=== PATIENT | male | born 1985 | race Caucasian/White ===

== ENCOUNTER → 2024-09-12 | Day surgery (SDC) | payer OTHER ==
[~2024-09-12] VITALS: Ht 193 cm; Wt 75.9 kg
[~2024-09-12] MED LIST: ACETAMINOPHEN 1000 MG/ISO-OSM 100 ML IV ONE; AMPICILLIN SODIUM 2 GM/NS 100 ML IV ONE; APIX5TAB PO; BACL10TA PO; CeFAZolin SODIUM 1 GM VIAL ONE; GABA-1181 PO; LEVE250T81 PO; MELA5TAB40 PO; ONDANSETRON HCL 4 MG/2 ML VIAL ONE; RINGERS SOLUTION,LACTATED 1,000 ML IV ONE; ROCURONIUM BROMIDE 10 MG/ML 5 ML VIAL ONE; SERT-158 PO; SUCCINYLCHOLINE CHLORIDE 20 MG/ML 10 ML VIAL ONE; [UNRECOGNIZED DRUG - CODE]
[2024-09-12 08:14] LABS: ANION GAP 3 mmol/L (8-16); CALCIUM, TOTAL 8.4 mg/dL (8.8-10.5); CARBON DIOXIDE 33 mmol/L (22-29); CHLORIDE 99 mmol/L (98-107); CREATININE 0.58 mg/dL (0.60-1.30); GLOMERULAR FILTR. RATE CALC > 60 mL/min (>60); GLUCOSE,RANDOM 83 mg/dL (70-110); POTASSIUM 4.3 mmol/L (3.5-5.1); SODIUM SERUM 135 mmol/L (136-145); UREA NITROGEN, BLOOD 16 mg/dL (7-18)
[2024-09-12 08:19] LABS: PROTHROMBIN TIME 11.5 SEC (9.4-11.6)
[2024-09-12 08:20] LABS: ALANINE AMINOTRANSFERASE 22 U/L (12-78); ALBUMIN 2.2 g/dL (3.4-5.0); ALKALINE PHOSPHATASE 160 U/L (46-116); ASPARTATE AMINOTRANSFERASE 28 U/L (15-37); BILIRUBIN,TOTAL 0.5 mg/dL (0.1-1.0); TOTAL PROTEIN, SERUM 7.1 g/dL (6.4-8.2)
[2024-09-12 08:29] LABS: BASOPHILS % (AUTO) 0.3 % (0.0-2.0); EOSINOPHILS % (AUTO) 0.7 % (1.0-6.0); HEMATOCRIT 43.2 % (41-53); HEMOGLOBIN 14.2 g/dL (13.5-17.5); LYMPHOCYTES # (AUTO) 1.9 K/uL (1.0-4.8); LYMPHOCYTES % (AUTO) 29.6 % (22.0-44.0); MEAN CORPUSCULAR HEMOGLOBIN 30.2 pg (26.0-34.0); MEAN CORPUSCULAR HGB CONC 32.9 G/dL (31.0-37.0); MEAN CORPUSCULAR VOLUME 92 fL (80-100); MONOCYTES # (AUTO) 0.6 K/uL (0.1-1.0); MONOCYTES % (AUTO) 9.1 % (2.0-9.0); NEUTROPHILS # (AUTO) 3.8 K/uL (1.8-7.7); NEUTROPHILS % (AUTO) 60.3 % (40.0-70.0); PLATELET COUNT (AUTO) 218 K/uL (150-450); RED BLOOD CELL COUNT(AUTO) 4.71 MIL/uL (4.50-5.90); RED CELL DISTRIBUTION WIDTH 18.8 % (11.5-14.5); WHITE BLOOD COUNT (AUTO) 6.3 K/uL (4.5-11.0)
[2024-09-12] MEDS: RINGERS SOLUTION,LACTATED 1,000 ML IV ONE (12:19)
== END | disposition home or self-care (01) ==
LOC: SURGERY 07:14
PROVIDERS: ATTEND Dentist General Practice
DX: K02.9 Dental caries, unspecified (principal); K05.20 Aggressive periodontitis, unspecified; K03.6 Deposits [accretions] on teeth; J45.909 Unspecified asthma, uncomplicated; Z93.1 Gastrostomy status; Z98.890 Other specified postprocedural states
CPT/HCPCS: 41899; 71045; 80053; 85025; 85610; 85730; 36415; 93005; J0290; J0690; J2405; J3490; J0330; J7120; J0131; Z7610